=== PATIENT | female | born 1960 | race African-American/Black ===

== ENCOUNTER 2017-05-15 09:06 | Day surgery (SDC) | payer OTHER ==
[2017-05-10 12:33] VITALS: BMI 29.1
[~2017-05-15 09:06] MED LIST: LEVOFLOXACIN 500 MG PREMIX BAG IVPB ONE
[2017-05-15] MEDS ORDERED: LEVOFLOXACIN 500 MG PREMIX BAG IVPB ONE (12:31)
[2017-05-15] MEDS ORDERED: LEVOFLOXACIN 500 MG IVPB 500 MG/100 ML BAG IVPB ONE (12:33)
[2017-05-15] MEDS ORDERED: ONDANSETRON 4 MG/2 ML VIAL IVPUSH PRN (13:04)
[2017-05-15] MEDS ORDERED: ACETAMINOPHEN 325 MG TABLET (FP) PO PRN (13:04)
[2017-05-15] MEDS ORDERED: LACTATED RINGERS SOLUTION 1,000 ML IV SCH (13:15)
[2017-05-15 14:48] VITALS: TEMP 98
--- NOTE | 2017-05-15 15:42 | OP ---
Operative Note - Note: Operative Date: 05/15/17 Pre-Operative Diagnosis: right renal stones Operation: right eswl Findings: 10 mm right lower pole stone lithotripsied second 5 mm right lower pole stone left alone in order to maximize the fragentation of the 10mm stone Post-Operative Diagnosis: Same as Pre-op Surgeon: Wil Anderson Anesthesia: General
[2017-05-15 16:17] VITALS: BP 127/60; PULSE 69
--- NOTE | 2017-05-15 22:32 | OP ---
DATE OF OPERATION: 05/15/2017 PREOPERATIVE DIAGNOSIS: Right renal stones. POSTOPERATIVE DIAGNOSIS: Right renal stones. PROCEDURE: Right extracorporeal shock wave lithotripsy. ATTENDING SURGEON: Selwyn Anderson M.D. ANESTHESIA: Fractional. OPERATION: Patient was brought in the operating room, placed in a supine position on the operating room table. Two stones were identified under real time ultrasonography and fluoroscopy. A 10-mm right lower pole stone and a 2nd stone in the lower pole measuring 5 mm. The patient had anesthesia administered and antibiotics given at this time. Once the anesthesia had taken effect and the antibiotics had been delivered, extracorporeal shock wave lithotripsy was started. The attention was placed on the 10-mm stone. 3000 impulses at 17 joules of power were administered to the stone with excellent fragmentation under real time ultrasonography and fluoroscopy. The 5-mm stone could not be addressed to the size of the primary stone. The patient will require a followup extracorporeal shock wave lithotripsy at a later date. DISPOSITION: Disposition of the patient to the recovery room. COMPLICATIONS: No complications were noted. SELWYN MORAN M.D. [id number]
== END 2017-05-15 16:18 | disposition home or self-care (01) ==
LOC: JASU-SURG 09:06
PROVIDERS: ATTEND Urology
PROC: 0TF3XZZ Fragmentation in Right Kidney Pelvis, External Approach (ICD-10-PCS; principal; 2017-05-15 12:30)
DX: N20.0 Calculus of kidney (principal)
CPT/HCPCS: 94760

== ENCOUNTER 2017-05-29 08:16 | Day surgery (SDC) | payer OTHER ==
[2017-05-26 09:37] VITALS: BMI 29.1
[2017-05-29] MEDS ORDERED: oxyCODONE HCL 5 MG TABLET PO PRN (09:58)
[2017-05-29] MEDS ORDERED: ONDANSETRON 4 MG/2 ML VIAL IVPUSH PRN (09:58)
[2017-05-29] MEDS ORDERED: LACTATED RINGERS SOLUTION 1,000 ML IV SCH (10:00)
[2017-05-29] MEDS ORDERED: LEVOFLOXACIN 500 MG PREMIX BAG IVPB ONE (10:12)
[2017-05-29 11:20] VITALS: TEMP 97.8
[2017-05-29 13:03] VITALS: BP 132/76; PULSE 69
--- NOTE | 2017-05-29 15:10 | OP ---
Operative Note - Note: Operative Date: 05/29/17 Pre-Operative Diagnosis: left renal stone Operation: left eswl Findings: 6 mm x 6 mm left lower pole stone Post-Operative Diagnosis: Same as Pre-op Surgeon: Wil Anderson Anesthesia: Fractional
== END 2017-05-29 13:10 | disposition home or self-care (01) ==
LOC: JASU-SURG 08:16
PROVIDERS: ATTEND Urology
PROC: 0TF4XZZ Fragmentation in Left Kidney Pelvis, External Approach (ICD-10-PCS; principal; 2017-05-29 11:00)
DX: N20.0 Calculus of kidney (principal)

== ENCOUNTER 2018-09-25 10:40 | Emergency (ER) | payer OTHER ==
[2018-09-25 10:52] VITALS: BP 155/73; PULSE 81; TEMP 97.7; BMI 27.4
--- NOTE | 2018-09-25 11:55 | PDOC ---
History of Present Illness - General Chief Complaint: Pain Stated Complaint: FALL/LT LOWER PAIN Time Seen by Provider: 09/25/18 11:35 - History of Present Illness Initial Comments: 09/25/18 11:54 58-year-old female with a past medical history significant for asthma diabetes hypertension and dyslipidemia presents for evaluation after fall. She states she fell out of bed last night she did not hit her head. There is been no loss of consciousness nausea vomiting post injury visual changes or chest pain. She states she bruised her left side on the edge of a platform bed. She complains of left-sided rib pain. Past History - Past Medical History Allergies/Adverse Reactions: Allergies Allergy/AdvReac Type Severity Reaction Status Date / Time No Known Allergies Allergy Verified 09/25/18 10:52 Home Medications: Ambulatory Orders Aspirin [ASA -] 81 mg PO DAILY 01/15/15 Acetaminophen [Tylenol .Regular Strength -] 650 mg PO Q4H PRN #30 tablet Amlodipine Besylate [Norvasc -] 10 mg PO DAILY #30 tablet 01/20/15 Atorvastatin Ca [Lipitor] 10 mg PO HS #30 tablet 01/20/15 Sitagliptin Phosphate [Januvia -] 50 mg PO DAILY@0700 #30 tablet 01/20/15 Albuterol Sulfate Inhaler - [Ventolin HFA Inhaler -] 2 inh PO Q4H PRN #1 inhaler 11/29/15 Texline-3S/Dha/Epa/Fish Oil [Fish Oil Dr 1,000 mg Softgel] 1 each PO DAILY Cholecalciferol (Vitamin D3) [Vitamin D3 -] 400 unit PO DAILY 03/15/17 Quetiapine Fumarate [Seroquel] 600 mg PO HS 03/15/17 Anemia: No Asthma: Yes Cancer: No Cardiac Disorders: No CVA: No COPD: No CHF: No Dementia: No Diabetes: Yes (NIDDM) GI Disorders: No Disorders: No HTN: Yes Hypercholesterolemia: No Kidney Stones: Yes Liver Disease: No Seizures: No Thyroid Disease: No - Surgical History Abdominal Surgery: No Appendectomy: No Cardiac Surgery: No Cholecystectomy: No Lung Surgery: No Neurologic Surgery: Yes (2013 BRAIN ANEURYSM) Orthopedic Surgery: No - Suicide/Smoking/Psychosocial Hx Smoking Status: Yes Smoking History: Current every day smoker Have you smoked in the past 12 months: No Number of Cigarettes Smoked Daily: 5 Information on smoking cessation initiated: Yes 'Breaking Loose' booklet given: 05/12/17 Hx Alcohol Use: No Drug/Substance Use Hx: No Substance Use Type: None Hx Substance Use Treatment: No Review of Systems - Review of Systems Respiratory: Yes: Other (L sided rib pain). No: Shortness of Breath *Physical Exam - Vital Signs Last Vital Signs Temp Pulse Resp BP Pulse Ox 97.7 F 81 17 155/73 98 09/25/18 10:48 09/25/18 10:48 09/25/18 10:48 09/25/18 10:48 09/25/18 10:48 - Physical Exam Comments: 09/25/18 11:55 HEAD: NC/AT EYES: Conjuntiva clear Ears: Canals and TM's normal NOSE: No d/c THROAT: Moist mucous membrances, oral pharanx clear, uvula midline NECK: Supple without adenopathy CARDIAC: S1 S2 LUNGS: CTA Full and Equal breath sounds; left-sided rib pain anteriorly about ribs 9 or 10. ABDOMEN: Soft NT ND MS: Full ROM in all joints without edema NEUROLOGIC: No gross sensory or motor deficits, NVID SKIN: Normal color and temperature no lesions or rashes ED Treatment Course - RADIOLOGY Radiology Studies Ordered: Category Date Time Status CHEST PA & LAT [RAD] Stat Radiology 09/25/18 11:52 Ordered RIBS-LEFT SIDE [RAD] Stat Radiology 09/25/18 11:52 Ordered Medical Decision Making - Medical Decision Making 09/25/18 12:21 Chest x-ray is normal I do not appreciate acute rib fracture on rib series today. Rib contusion discussed use of Tylenol and incentive spirometry. *DC/Admit/Observation/Transfer Diagnosis at time of Disposition: Contusion of rib on left side - Discharge Dispostion Disposition: HOME Condition at time of disposition: Stable Decision to Admit order: No - Referrals Referrals: Gabbie Oconnell MD [Primary Care Provider] - - Patient Instructions Printed Discharge Instructions: DI for Rib Contusion, How to Use an Incentive Spirometer Additional Instructions: Please use the incentive spirometer 10 times an hour while awake and Tylenol as directed for pain control. Return to the emergency room for worsening symptoms and follow-up with your primary care physician one to 2 days for further evaluation and treatment options. - Post Discharge Activity
== END 2018-09-25 12:40 | disposition home or self-care (01) ==
LOC: JERFT 10:40
DX: S20.212A Contusion of left front wall of thorax, initial encounter (principal); W06.XXXA Fall from bed, initial encounter; Y93.89 Activity, other specified; Y92.032 Bedroom in apartment as the place of occurrence of the external cause; Y99.8 Other external cause status
CPT/HCPCS: 71046-TC-FY; 71101-TC-LT-FY; 99281-25

== ENCOUNTER 2019-01-07 12:27 | Day surgery (SDC) | payer OTHER ==
[2019-01-04 08:52] VITALS: BMI 28.3
[2019-01-07] MEDS ORDERED: MIDAZOLAM HCL 2 MG/2 ML SINGLE DOSE VIAL ONE (15:25)
[2019-01-07] MEDS ORDERED: PROPOFOL 20 ML ONE (15:41)
[2019-01-07] MEDS ORDERED: fentaNYL CITRATE 250 MCG/5 ML VIAL ONE (15:45)
--- NOTE | 2019-01-07 16:08 | OP ---
Operative Note - Note: Operative Date: 01/07/19 Pre-Operative Diagnosis: Right renal stone Operation: Righr ESWL Findings: x2 7 mm lover pole Right renal stone Post-Operative Diagnosis: Same as Pre-op Surgeon: Wil Anderson Anesthesia: Fractional Estimated Blood Loss (mls): 0 Operative Report Dictated: Yes
[2019-01-07 16:09] VITALS: TEMP 97.8
[2019-01-07 17:16] VITALS: BP 129/76; PULSE 59
--- NOTE | 2019-01-08 07:44 | OP ---
DATE OF OPERATION: 01/07/2019 PREOPERATIVE DIAGNOSIS: Right renal stone. POSTOPERATIVE DIAGNOSIS: Right renal stone. PROCEDURE: Right extracorporeal shock wave lithotripsy. ANESTHESIA: Fractional. ATTENDING: Wil Leslie MD OPERATION WENT FOLLOWS: The patient was brought in the operating room, placed in supine position on the operating room table. Ultrasonography and fluoroscopy were performed. Two stones, each measuring 7 mm, were noted in the right lower pole calyx. At this point, anesthesia was administered, and shock wave lithotripsy was started (it must be noted that Levaquin 500 mg was also administered to the patient), 2500 impulses at 18 joules of power were administered to the stones. Excellent fragmentation of the stones was noted under real time ultrasonography and fluoroscopy. The patient tolerated the procedure very well. There were no complications noted. The disposition of the patient was to the recovery room. Rebeca [id number]
== END 2019-01-07 17:16 | disposition home or self-care (01) ==
LOC: JASU-SURG 12:27
PROVIDERS: ATTEND Urology
PROC: 0TF3XZZ Fragmentation in Right Kidney Pelvis, External Approach (ICD-10-PCS; principal; 2019-01-07 14:45)
DX: N20.0 Calculus of kidney (principal); E11.9 Type 2 diabetes mellitus without complications; I10 Essential (primary) hypertension
CPT/HCPCS: 82962

== ENCOUNTER 2019-02-04 11:41 | Day surgery (SDC) | payer OTHER ==
[2019-02-01 15:25] VITALS: BMI 28.3
[2019-02-04] MEDS ORDERED: MIDAZOLAM HCL 2 MG/2 ML SINGLE DOSE VIAL ONE ×3 (13:28→13:43)
--- NOTE | 2019-02-04 13:43 | OP ---
Operative Note - Note: Operative Date: 02/04/19 Pre-Operative Diagnosis: Left trenal stone Operation: Left ESWL Findings: 8 mm lower pole Left renal stone Anesthesia: Fractional Estimated Blood Loss (mls): 0 Operative Report Dictated: Yes
[2019-02-04 16:19] VITALS: BP 134/74; PULSE 60; TEMP 98
--- NOTE | 2019-02-04 19:57 | OP ---
DATE OF OPERATION: 02/04/2019 PREOPERATIVE DIAGNOSIS: Left renal stone. POSTOPERATIVE DIAGNOSIS: Left renal stone. PROCEDURE: Left extracorporeal shockwave lithotripsy. ATTENDING: Selwyn Anderson M.D. ANESTHESIA: Fractional. DESCRIPTION OF PROCEDURE: Patient was brought in the operating room, placed in a supine position on the operating room table. Ultrasonography and fluoroscopy were performed. An 8-mm left lower pole stone was identified. At this point anesthesia and preoperative antibiotics were then administered. Shockwave lithotripsy was then performed. Excellent fragmentation of the stone was noted under real-time ultrasonography and fluoroscopy. No complications were noted. The patient tolerated the procedure very well. DISPOSITION: To recovery room. SELWYN MORAN M.D. [id number]
== END 2019-02-04 16:20 | disposition home or self-care (01) ==
LOC: JASU-SURG 11:41
PROVIDERS: ATTEND Urology
PROC: 0TF4XZZ Fragmentation in Left Kidney Pelvis, External Approach (ICD-10-PCS; principal; 2019-02-04 13:15)
DX: N20.0 Calculus of kidney (principal)
CPT/HCPCS: 82962

== ENCOUNTER → 2020-06-17 | Day surgery (SDC) | payer OTHER | END | disposition home or self-care (01) | LOC: FMAMMOTONE 08:24 | PROVIDERS: ATTEND Family Medicine | PROC: 0HBU3ZX Excision of Left Breast, Percutaneous Approach, Diagnostic (ICD-10-PCS; principal; 2020-06-17) | DX: D24.2 Benign neoplasm of left breast (principal); N60.12 Diffuse cystic mastopathy of left breast; N60.82 Other benign mammary dysplasias of left breast; N60.92 Unspecified benign mammary dysplasia of left breast; R92.1 Mammographic calcification found on diagnostic imaging of breast | CPT/HCPCS: 19081; 76098-TC-FY; 87899; 88305-TC; A4648 ==

== ENCOUNTER 2020-09-22 04:32 | Day surgery (SDC) | payer OTHER ==
[2020-09-22 08:17] VITALS: BMI 22.4
[2020-09-22] MEDS ORDERED: ISOSULFAN BLUE 50 MG/5 ML VIAL SQ ONE (14:03)
[2020-09-22] MEDS ORDERED: BUPIVACAINE HCL 50 ML ONE ×2 (14:04→14:58)
[2020-09-22] MEDS ORDERED: PROPOFOL 20 ML ONE (14:10)
[2020-09-22] MEDS ORDERED: MIDAZOLAM HCL 2 MG/2 ML SINGLE DOSE VIAL ONE (14:10)
[2020-09-22] MEDS ORDERED: ceFAZolin SODIUM 1 GM VIAL IVPB ONE (14:42)
[2020-09-22] MEDS ORDERED: ONDANSETRON 4 MG/2 ML VIAL IVPUSH PRN (15:22)
[2020-09-22] MEDS ORDERED: LACTATED RINGERS SOLUTION 1,000 ML IV SCH (15:30)
[2020-09-22 16:45] VITALS: TEMP 98.6
[2020-09-22 17:24] VITALS: BP 154/76; PULSE 58
== END 2020-09-22 17:15 | disposition home or self-care (01) ==
LOC: JASU-SURG 04:32
PROVIDERS: ATTEND Surgery
PROC: 0HBU0ZZ Excision of Left Breast, Open Approach (ICD-10-PCS; principal; 2020-09-22 11:30)
DX: D05.12 Intraductal carcinoma in situ of left breast (principal); N60.92 Unspecified benign mammary dysplasia of left breast; E11.9 Type 2 diabetes mellitus without complications
CPT/HCPCS: 19281; 76098-TC-FY; 82962; 88307-TC; 88341-TC; 88342-TC; 93005; 93010; 94760

== ENCOUNTER → 2021-03-29 | Day surgery (SDC) | payer OTHER ==
[2021-03-25 13:36] VITALS: BMI 21.6
[~2021-03-29] MED LIST changes: +GLYCOPYRROLATE 0.2 MG/1 ML VIAL ONE; -LEVOFLOXACIN 500 MG PREMIX BAG IVPB ONE; +PROPOFOL 20 ML ONE
[2021-03-29 12:59] VITALS: BP 139/88; PULSE 71; TEMP 98.7
== END | disposition home or self-care (01) ==
LOC: JASU-SURG 04:21
PROVIDERS: ATTEND Urology
PROC: 0TF3XZZ Fragmentation in Right Kidney Pelvis, External Approach (ICD-10-PCS; principal; 2021-03-29 11:30)
DX: N20.0 Calculus of kidney (principal)
CPT/HCPCS: 82962

== ENCOUNTER → 2021-04-26 | Day surgery (SDC) | payer OTHER ==
[~2021-04-26] MED LIST changes: -GLYCOPYRROLATE 0.2 MG/1 ML VIAL ONE; +MIDAZOLAM HCL 2 MG/2 ML SINGLE DOSE VIAL ONE
== END | disposition home or self-care (01) ==
LOC: JASU-SURG 04:43
PROVIDERS: ATTEND Urology
DX: Z53.8 Procedure and treatment not carried out for other reasons (principal)

== ENCOUNTER 2021-05-10 04:31 | Day surgery (SDC) | payer OTHER ==
[2021-05-06 10:33] VITALS: BMI 21.6
[2021-05-10] MEDS ORDERED: MIDAZOLAM HCL 2 MG/2 ML SINGLE DOSE VIAL ONE (08:24)
[2021-05-10] MEDS ORDERED: PROPOFOL 20 ML ONE (08:28)
[2021-05-10 10:42] VITALS: BP 140/80; PULSE 70; TEMP 98
== END 2021-05-10 10:42 | disposition home or self-care (01) ==
LOC: JASU-SURG 04:31
PROVIDERS: ATTEND Urology
PROC: 0TF4XZZ Fragmentation in Left Kidney Pelvis, External Approach (ICD-10-PCS; principal; 2021-05-10)
DX: N20.0 Calculus of kidney (principal)
CPT/HCPCS: 94760